=== PATIENT | female | born 1965 | race Caucasian/White ===

== ENCOUNTER → 2023-02-05 | Outpatient (CLI) | payer OTHER | END | disposition home or self-care (01) | LOC: MRI 01-10 14:00 | PROVIDERS: ATTEND Specialist | DX: H93.A1 Pulsatile tinnitus, right ear (principal) ==

== ENCOUNTER → 2023-02-07 | Outpatient (CLI) | payer OTHER | END | disposition home or self-care (01) | LOC: MRI 01-10 13:00 | PROVIDERS: ATTEND Specialist | DX: H93.A1 Pulsatile tinnitus, right ear (principal) ==

== ENCOUNTER → 2023-09-17 | Outpatient (CLI) | payer OTHER | END | disposition home or self-care (01) | LOC: RAD 16:06 | PROVIDERS: ATTEND Nurse Practitioner Family | DX: M89.8X1 Other specified disorders of bone, shoulder (principal) ==

== ENCOUNTER → 2023-10-03 | Outpatient (CLI) | payer OTHER ==
[2023-10-03 10:26] LABS: ALKALINE PHOSPHATASE 65 U/L (46-116); CHOLESTEROL 266 mg/dL (<200); LDL CHOLESTEROL 176 mg/dL (9-159); SGPT/ALT 21 U/L (5-49); TOTAL PROTEIN 7.2 gm/dL (6.0-8.0); TRIGLYCERIDES 193 mg/dl (<150)
== END | disposition home or self-care (01) ==
LOC: LAB 09:37
PROVIDERS: ATTEND Internal Medicine Cardiovascular Disease
DX: I73.9 Peripheral vascular disease, unspecified (principal); E78.2 Mixed hyperlipidemia